=== PATIENT | male | born 1960 | race Caucasian/White ===

== ENCOUNTER 2021-07-31 04:31 | Emergency (ER) | payer OTHER | END 2021-07-31 08:55 | disposition left against medical advice (07) | LOC: ER1 04:31 | DX: S89.92XA Unspecified injury of left lower leg, initial encounter (principal); E11.9 Type 2 diabetes mellitus without complications; I10 Essential (primary) hypertension; X58.XXXA Exposure to other specified factors, initial encounter | CPT/HCPCS: 73590; 99281 ==